=== PATIENT | female | born 1950 | race Hispanic/Latino ===

== ENCOUNTER 2023-12-25 06:25 | Day surgery (SDC) | payer MEDICARE ==
[2023-12-20 09:30] VITALS: BP 190/91; PULSE 59; RESP 18
[~2023-12-25] VITALS: Ht 167.6 cm; Wt 88.1 kg
[2023-12-25] VITALS (17 sets, daily range): BP systolic 123–181; BP diastolic 55–79; PULSE 57–93; RESP 15–18
[~2023-12-25 06:25] MED LIST: AMIL5TAB8 PO; ASCO100031 PO; CHOL-9 PO; DILT120C43 PO; GLUCOSAMINE MSM PO; HYDR12.54 PO; MAGN200T4 PO; ROSU10TA72 PO; ZINC50TA64 PO; mvi PO
[2023-12-25] MEDS ORDERED: CEFAZOLIN SODIUM 2 GM VIAL ONE (06:58)
[2023-12-25] MEDS ORDERED: ROCURONIUM BROMIDE 10MG/1ML 5ML VL ONE ×2 (07:11→08:20)
[2023-12-25] MEDS ORDERED: PROPOFOL 10 MG/ML 20ML VIAL IV ONE (07:11)
[2023-12-25] MEDS: LACTATED RINGERS 1000ML 1,000 ML IV ONE (07:11)
[2023-12-25] MEDS ORDERED: MIDAZOLAM HCL 1 MG/ML 2ML VIAL ONE (07:11)
[2023-12-25] MEDS ORDERED: LIDOCAINE PF 100MG/5ML (2%) SYRINGE 5ML ONE (07:11)
[2023-12-25] MEDS ORDERED: BUPIVACAINE/PF 0.5% 30ML VIAL ONE (07:12)
[2023-12-25] MEDS ORDERED: EPINEPHRINE PF 1MG (1:1,000) 1 MG/ML AMP ONE (07:12)
[2023-12-25] MEDS ORDERED: FENTANYL CITRATE PF 50 MCG/1 ML 2ML VIAL ONE (07:12)
[2023-12-25] MEDS ORDERED: DEXAMETHASONE SOD PHOSPHATE 10MG/ML 1ML VIAL ONE (07:55)
[2023-12-25] MEDS ORDERED: ONDANSETRON 4MG INJ ONE (07:55)
[2023-12-25] MEDS: CEFAZOLIN SODIUM 2 GM VIAL IVPB ONE (07:58)
[2023-12-25] MEDS ORDERED: GLYCOPYRROLATE 0.2 MG/ML 5 ML VIAL ONE (08:13)
[2023-12-25] MEDS ORDERED: EPHEDRINE SULFATE 50 MG/ML AMPULE ONE (08:16)
[2023-12-25] MEDS ORDERED: ATROPINE 1MG SYG IVP ONE (08:18)
[2023-12-25] MEDS: IOHEXOL-350 50ML VIAL IV ONE (08:27)
[2023-12-25] MEDS ORDERED: NEOSTIGMINE METHYLSULFATE 1MG/ML IV ONE (08:36)
[2023-12-25] MEDS ORDERED: KETOROLAC 30MG VIAL (30MG/ML) ONE (08:43)
[2023-12-25] MEDS ORDERED: GABA-529 PO (08:50)
[2023-12-25] MEDS ORDERED: DOCU-116 PO (08:50)
[2023-12-25] MEDS ORDERED: METH-662 PO (08:50)
[2023-12-25] MEDS ORDERED: TRAM50TA4 PO (08:50)
[2023-12-25] MEDS ORDERED: IOHEXOL-350 50ML VIAL IV ONE (10:13)
== END 2023-12-25 10:55 | disposition home or self-care (01) ==
LOC: DAH 06:25
PROVIDERS: ATTEND Surgery
DX: K80.10 Calculus of gallbladder with chronic cholecystitis without obstruction (principal); I10 Essential (primary) hypertension; E78.5 Hyperlipidemia, unspecified; G47.30 Sleep apnea, unspecified; K21.9 Gastro-esophageal reflux disease without esophagitis; E66.9 Obesity, unspecified; Z68.31 Body mass index [BMI] 31.0-31.9, adult; Z88.5 Allergy status to narcotic agent; Z82.49 Family history of ischemic heart disease and other diseases of the circulatory system; Z79.899 Other long term (current) drug therapy; Z90.710 Acquired absence of both cervix and uterus; Z98.890 Other specified postprocedural states
CPT/HCPCS: 93005; 47563; 88304; 74300; A4663; J7030; A4215 ×2; C1758; J7120; J3010; J1100; J3490 ×5; J2001; J0171; J0461; J2250; J2704; J2405; J1885; J2710; J0665; Q9967 ×2; J0690 ×2; A4649 ×2; A4930 ×3; A4223; A4657; A4222; A4221; A4600